=== PATIENT | female | born 1985 | race Caucasian/White ===

== ENCOUNTER 2020-05-20 08:09 | Outpatient (CLI) | payer OTHER ==
[2020-05-20 15:35] LABS: BASOPHILS % (AUTO) 0.9 %; EOSINOPHILS # (AUTO) 0.4 10^3/uL (0.0-0.7); EOSINOPHILS % (AUTO) 8.3 %; HGB - HEMOGLOBIN 13.6 g/dL (12.0-16.0); LYMPHOCYTES # (AUTO) 1.7 10^3/uL (1.5-3.5); LYMPHOCYTES % (AUTO) 37.7 %; MEAN CORPUSCULAR HEMOGLOBIN 28.3 pg (27.0-31.0); MEAN CORPUSCULAR HGB CONC 31.8 g/dL (32.0-36.0); MONOCYTES # (AUTO) 0.3 10^3/uL (0.0-1.0); MONOCYTES % (AUTO) 7.5 %; NEUTROPHILS # (AUTO) 2.1 10^3/uL (1.5-6.6); NEUTROPHILS % (AUTO) 45.4 %; PLT - PLATELET COUNT 214 10^3/uL (130-450); RED BLOOD COUNT 4.81 10^6/uL (4.20-5.40); RED CELL DISTRIBUTION WIDTH 12.5 % (12.0-15.0); WHITE BLOOD COUNT 4.6 x10^3/uL (4.8-10.8)
[2020-05-20 15:47] LABS: ALBUMIN 4.3 g/dL (3.2-5.5); ALBUMIN/GLOBULIN RATIO 1.5 (1.0-2.2); BILIRUBIN,TOTAL 0.9 mg/dL (0.2-1.0); CALCIUM 9.3 mg/dL (8.5-10.3); CREATININE 0.6 mg/dL (0.4-1.0); TOTAL PROTEIN 7.2 g/dL (6.7-8.2)
[2020-05-20 16:09] LABS: FREE T3 3.54 pg/mL (2.5-3.9); FREE T4 (FREE THYROXINE) 0.96 ng/dL (0.58-1.64)
[2020-05-20 16:12] LABS: FERRITIN 51.5 ng/mL (11.0-306.8)
[2020-05-20 16:32] LABS: FOLLICLE STIMULATING HORMONE 7.29 mIU/mL
[2020-05-20 16:33] LABS: LUTEINIZING HORMONE 20.79 mIU/mL
== END 2020-05-20 08:10 | disposition home or self-care (01) ==
LOC: LAB.S 08:09
PROVIDERS: ATTEND Acupuncturist
DX: L70.9 Acne, unspecified (principal); Z13.0 Encounter for screening for diseases of the blood and blood-forming organs and certain disorders involving the immune mechanism; N92.6 Irregular menstruation, unspecified; Z13.21 Encounter for screening for nutritional disorder
CPT/HCPCS: 36415; 80053; 81599; 82306; 82607; 82627; 82728; 83001; 83002; 84402; 84403; 84439; 84443; 84481; 85025

== ENCOUNTER 2020-08-21 07:54 | Outpatient (CLI) | payer OTHER ==
[2020-08-21 14:50] LABS: BASOPHILS % (AUTO) 0.7 %; EOSINOPHILS # (AUTO) 0.6 10^3/uL (0.0-0.7); EOSINOPHILS % (AUTO) 10.8 %; HGB - HEMOGLOBIN 14.2 g/dL (12.0-16.0); LYMPHOCYTES # (AUTO) 2.3 10^3/uL (1.5-3.5); LYMPHOCYTES % (AUTO) 42.6 %; MEAN CORPUSCULAR HGB CONC 32.4 g/dL (32.0-36.0); MEAN CORPUSCULAR VOLUME 89.4 fL (81.0-99.0); MEAN PLATELET VOLUME 11.2 fL (7.9-10.8); MONOCYTES # (AUTO) 0.3 10^3/uL (0.0-1.0); MONOCYTES % (AUTO) 5.7 %; NEUTROPHILS # (AUTO) 2.2 10^3/uL (1.5-6.6); PLT - PLATELET COUNT 257 10^3/uL (130-450); RED CELL DISTRIBUTION WIDTH 12.3 % (12.0-15.0); WHITE BLOOD COUNT 5.5 x10^3/uL (4.8-10.8)
[2020-08-21 15:44] LABS: HEMOGLOBIN A1c% 5.2 % (4.27-6.07)
[2020-08-21 15:50] LABS: % IRON SATURATION 29 % (20-50); IRON 84 ug/dL (28-170); TOTAL IRON BINDING CAPACITY 288 ug/dL (250-450); TRANSFERRIN 206 mg/dL (192-382)
== END 2020-08-21 07:55 | disposition home or self-care (01) ==
LOC: LAB.S 07:54
PROVIDERS: ATTEND Acupuncturist
DX: R79.9 Abnormal finding of blood chemistry, unspecified (principal); E34.9 Endocrine disorder, unspecified; Z13.1 Encounter for screening for diabetes mellitus; Z13.0 Encounter for screening for diseases of the blood and blood-forming organs and certain disorders involving the immune mechanism
CPT/HCPCS: 36415; 82306; 82627; 83036; 83540; 84466; 85025

== ENCOUNTER 2021-02-08 09:15 | Outpatient (CLI) | payer OTHER ==
[2021-02-10 12:26] LABS: DHEA SULFATE 441 mcg/dL (23-266)
[2021-02-15 18:01] LABS: ENDOMYSIAL ANTIBODY SCR IGA NEGATIVE (NEGATIVE); GLIADIN (DEAMIDATED) AB IGA 4 U (<20); GLIADIN (DEAMIDATED) AB IGG <1 U (<20); IMMUNOGLOBULIN A 205 mg/dL (47-310); TISSUE TRANSGLUTAMINASE IGA <1 U/mL; TISSUE TRANSGLUTAMINASE IGG 1 U/mL
== END 2021-02-08 09:16 | disposition home or self-care (01) ==
LOC: LAB.S 09:15
PROVIDERS: ATTEND Acupuncturist
DX: E34.9 Endocrine disorder, unspecified (principal); R10.84 Generalized abdominal pain; Z13.29 Encounter for screening for other suspected endocrine disorder
CPT/HCPCS: 36415; 81599; 82627; 82784; 83516; 84402; 84403; 84443; 86255

== ENCOUNTER 2021-03-12 12:21 | Emergency (ER) | payer OTHER ==
[2021-03-12 12:52] LABS: BASOPHILS % (AUTO) 0.7 %; EOSINOPHILS # (AUTO) 0.2 10^3/uL (0.0-0.7); EOSINOPHILS % (AUTO) 4.4 %; HCT - HEMATOCRIT 42.1 % (37.0-47.0); HGB - HEMOGLOBIN 14.1 g/dL (12.0-16.0); LYMPHOCYTES # (AUTO) 1.9 10^3/uL (1.5-3.5); LYMPHOCYTES % (AUTO) 34.7 %; MEAN CORPUSCULAR HEMOGLOBIN 29.6 pg (27.0-31.0); MEAN CORPUSCULAR HGB CONC 33.5 g/dL (32.0-36.0); MEAN CORPUSCULAR VOLUME 88.4 fL (81.0-99.0); MEAN PLATELET VOLUME 10.3 fL (7.9-10.8); MONOCYTES # (AUTO) 0.4 10^3/uL (0.0-1.0); MONOCYTES % (AUTO) 6.4 %; NEUTROPHILS # (AUTO) 2.9 10^3/uL (1.5-6.6); NEUTROPHILS % (AUTO) 53.6 %; PLT - PLATELET COUNT 233 10^3/uL (130-450); RED BLOOD COUNT 4.76 10^6/uL (4.20-5.40); RED CELL DISTRIBUTION WIDTH 12.1 % (12.0-15.0); WHITE BLOOD COUNT 5.4 x10^3/uL (4.8-10.8)
[2021-03-12 13:09] LABS: BILIRUBIN,URINE NEGATIVE (NEGATIVE); GLUCOSE, URINE (UA) NEGATIVE (NEGATIVE); KETONES,URINE (UA) NEGATIVE (NEGATIVE); LEUKOCYTE ESTERASE, URINE NEGATIVE (NEGATIVE); NITRITE,URINE NEGATIVE (NEGATIVE); OCCULT BLOOD,URINE LARGE (NEGATIVE); PROTEIN,URINE NEGATIVE (NEGATIVE); UROBILINOGEN,URINE 0.2 (NORMAL) E.U./dL (NORMAL)
[2021-03-12 13:10] LABS: ALBUMIN 4.3 g/dL (3.2-5.5); ALBUMIN/GLOBULIN RATIO 1.4 (1.0-2.2); BILIRUBIN,TOTAL 0.5 mg/dL (0.2-1.0); CREATININE 0.6 mg/dL (0.4-1.0); POTASSIUM 3.5 mmol/L (3.5-5.0); TOTAL PROTEIN 7.4 g/dL (6.7-8.2)
[2021-03-12 13:12] LABS: CLARITY,URINE CLEAR (CLEAR)
--- NOTE | 2021-03-12 13:14 | ED Physician Documentation ---
History of Present Illness - Stated complaint Stated Complaint: FEMALE / 9 1/2 WK OB - Chief complaint Chief Complaint: Abd Pain - History obtained from History obtained from: Patient - History of Present Illness Timing: Yesterday Pain level max: 2 Pain level now: 1 - Additonal information Additional information: Patient is a 35-year-old female, 3 para 2 who presents to the emergency department stating that she has had vaginal spotting and light bleeding yesterday and today. She believes she is about 9 weeks . Has not had an ultrasound yet this . Also having pelvic cramping. Nothing makes it better or worse. No fevers. No chills. No cough or congestion. Review of Systems Constitutional: denies: Fever, Chills GI: denies: Vomiting, Diarrhea Skin: denies: Rash Musculoskeletal: denies: Neck pain, Back pain Neurologic: denies: Headache PD PAST MEDICAL HISTORY - Past Medical History Past Medical History: No - Present Medications Home Medications: Ambulatory Orders Medication Instructions Recorded Confirmed No Known Home Medications 03/12/21 03/12/21 - Allergies Allergies/Adverse Reactions: Allergies Allergy/AdvReac Type Severity Reaction Status Date / Time Sulfa (Sulfonamide Allergy Rash Verified 03/12/21 12:30 Antibiotics) - Social History Does the pt smoke?: No Smoking Status: Never smoker PD ED PE NORMAL - Vitals Vital signs reviewed: Yes - General General: Alert and oriented X 3, No acute distress, Well developed/nourished - HEENT HEENT: Moist mucous membranes - Neck Neck: Supple, no meningeal sign - Cardiac Cardiac: RRR, Strong equal pulses - Respiratory Respiratory: No respiratory distress, Clear bilaterally - Abdomen Abdomen: Soft, Non tender, Non distended - Derm Derm: Warm and dry - Extremities Extremities: No edema, No calf tenderness / cord - Neuro Neuro: Alert and oriented X 3 - Psych Psych: Normal mood, Normal affect Results - Vitals Vitals: Vital Signs - 24 hr 03/12/21 12:24 Temperature 36.8 C Heart Rate 76 Respiratory 16 Rate Blood Pressure 120/68 O2 Saturation 98 Oxygen O2 Source Room air - Labs Labs: Laboratory Tests 03/12/21 03/12/21 03/12/21 12:43 12:45 12:45 WBC 5.4 RBC 4.76 Hgb 14.1 Hct 42.1 MCV 88.4 MCH 29.6 MCHC 33.5 RDW 12.1 Plt Count 233 MPV 10.3 Neut # (Auto) 2.9 Lymph # (Auto) 1.9 [place] # (Auto) 0.4 Eos # (Auto) 0.2 Baso # (Auto) 0.0 Absolute Nucleated RBC 0.00 Nucleated RBC % 0.0 Sodium 138 Potassium 3.5 Chloride 103 Carbon Dioxide 25 Anion Gap 10.0 BUN 9 Creatinine 0.6 Estimated GFR (MDRD) 115 Glucose 103 H Calcium 9.0 Total Bilirubin 0.5 AST 17 ALT 16 Alkaline Phosphatase 65 Total Protein 7.4 Albumin 4.3 Globulin 3.1 Albumin/Globulin Ratio 1.4 Lipase 26 HCG, Quant Urine Color YELLOW Urine Clarity CLEAR Urine pH 7.0 Ur Specific [place] 1.010 Urine Protein NEGATIVE Urine Glucose (UA) NEGATIVE Urine Ketones NEGATIVE Urine Occult Blood LARGE H Urine Nitrite NEGATIVE Urine Bilirubin NEGATIVE Urine Urobilinogen 0.2 (NORMAL) Ur Leukocyte Esterase NEGATIVE Urine RBC 6-10 H Urine WBC 0-3 Ur Squamous Epith Cells RARE Squamous Urine Bacteria Rare Ur Microscopic Review INDICATED Urine Culture Comments NOT INDICATED Blood Type 03/12/21 03/12/21 12:45 12:45 WBC RBC Hgb Hct MCV MCH MCHC RDW Plt Count MPV Neut # (Auto) Lymph # (Auto) [place] # (Auto) Eos # (Auto) Baso # (Auto) Absolute Nucleated RBC Nucleated RBC % Sodium Potassium Chloride Carbon Dioxide Anion Gap BUN Creatinine Estimated GFR (MDRD) Glucose Calcium Total Bilirubin AST ALT Alkaline Phosphatase Total Protein Albumin Globulin Albumin/Globulin Ratio Lipase HCG, Quant 29059.00 Urine Color Urine Clarity Urine pH Ur Specific [place] Urine Protein Urine Glucose (UA) Urine Ketones Urine Occult Blood Urine Nitrite Urine Bilirubin Urine Urobilinogen Ur Leukocyte Esterase Urine RBC Urine WBC Ur Squamous Epith Cells Urine Bacteria Ur Microscopic Review Urine Culture Comments Blood Type O POSITIVE - Rads (name of study) OB US Radiology: Prelim report reviewed, EMP read contemporaneously, See rad report PD MEDICAL DECISION MAKING - ED course Complexity details: reviewed results, re-evaluated patient, considered differential, d/w patient ED course: Patient with a yolk sac but no pole yet identified. EGA is 6 weeks 3 days. hCG is 12,600. She is not actively bleeding here. Urinalysis appears contaminated. We will have her return in 2 to 3 days for a repeat hCG. If this is rising, she should follow-up with her doctor for repeat ultrasound. Patient counseled regarding signs and symptoms for which I believe and urgent re- evaluation would be necessary. Patient with good understanding of and agreement to plan and is comfortable going home at this time This document was made in part using voice recognition software. While efforts are made to proofread this document, sound alike and grammatical errors may occur. Departure - Departure Disposition: 01 Home, Self Care Clinical Impression: Vaginal bleeding affecting early Condition: Good Instructions: ED Miscarriage Poss Follow-Up: your,doctor in [place] [Other] Comments: Please return to the emergency department in 2 to 3 days for a repeat hCG. Your ultrasound today shows a yolk sac, but we do not yet see the itself. Your estimated gestational age by yolk sac measurement is 6 weeks and 3 days. There is a small subchorionic bleed, this may represent the bleeding that you are having. You do have a right corpus luteum cyst. The pole is not yet identified. Your hCG level is 12,600. On your repeat visit, we will determine if the hCG level is going up or down, this will help us with the next age in your management. If it is going up, you will likely need a repeat ultrasound in 1 to 2 weeks when you are in [place] Your blood type is O+
[2021-03-12 13:23] LABS: BACTERIA,URINE Rare /HPF (None Seen); SQUAMOUS EPITHELIAL CELL,UR RARE Squamous (<= Few); WBC,URINE 0-3 /HPF (0-5)
--- NOTE | 2021-03-12 15:06 | Ultrasound Report ---
PROCEDURE: OB First Trimester w/TV INDICATIONS: 9 weeks preg, vag bleed OUTSIDE/PRIOR DATING DATA: Last menstrual period (LMP): 01/03/2021. LMP-based estimated date of delivery (AMISHA): 10/10/2021. TECHNIQUE: Real-time scanning was performed of the fetus and maternal pelvic organs, with image documentation. Endovaginal scanning was also performed to better visualize the fetus and maternal ovaries. COMPARISON: None. FINDINGS: Gestational sac and yolk sac are seen within the uterus with a mean gestational sac diameter of 1.6 c m, corresponding to a estimated gestational age of 6 weeks 3 days. No definite pole visualized. A small perigestational sac hemorrhage is seen measuring 0.7 x 0.6 x 1.8 cm. Measurement variability in dating: +/- 4 weeks by LMP, +/- 7 days by mean sac diameter (use before 6 weeks gestation if crown-rump length not able to be measured), +/- 5 days by crown-rump length (6-12 weeks gestation). Maternal organs: The ovaries are normal in size. A right ovarian cyst is seen measuring up to 1.8 cm in maximum dimension. IMPRESSION: 1. Intrauterine gestational sac and yolk sac identified without definite visualization of a po le. Mean gestational sac diameter compatible with a 6 week 3 day gestation. Findings most likely repr esent normal early , but follow-up beta-hCG and repeat ultrasound recommended. 2. Small gestational sac hemorrhage measuring 0.7 x 0.6 x 1.8 cm. Preliminary findings were conveyed to Dr. Tijerina by the recovery specialist on 03/12/2021 at 2:45 PM. Reviewed by: Jamari Glasgow MD on 03/12/2021 3:05 PM PDT Approved by: Jamari Glasgow MD on 03/12/2021 3:05 PM PDT Station ID: [id number]
[2021-03-12 15:07] VITALS: BP 111/70
== END 2021-03-12 15:09 | disposition home or self-care (01) ==
LOC: ED 12:21
DX: O20.9 Hemorrhage in early pregnancy, unspecified (principal); Z3A.01 Less than 8 weeks gestation of pregnancy
CPT/HCPCS: 36415; 80053; 81001; 81003; 83690; 84702; 85025; 86900; 86901; 87086; 99284

== ENCOUNTER 2021-03-14 11:34 | Emergency (ER) | payer OTHER ==
[2021-03-14 12:23] VITALS: BP 106/59
--- NOTE | 2021-03-14 12:55 | ED Physician Documentation ---
History of Present Illness - Stated complaint Stated Complaint: LAB RECHECK - Chief complaint Chief Complaint: General - History obtained from History obtained from: Patient - Additonal information Additional information: She was seen by my partner 2 days ago for symptoms concerning for threatened . Despite thinking she was about 9 weeks along, Her ultrasound on that date showed 6 weeks gestation without reassuring signs of wellbeing. Beta hCG at that time was 12,676. She was advised to come back for recheck today. Review of Systems Constitutional: denies: Fever, Chills GI: denies: Abdominal Pain, Nausea, Vomiting : denies: Dysuria PD PAST MEDICAL HISTORY - Past Medical History Past Medical History: No - Past Surgical History Past Surgical History: No - Present Medications Home Medications: Ambulatory Orders Medication Instructions Recorded Confirmed No Known Home Medications 03/12/21 03/14/21 - Allergies Allergies/Adverse Reactions: Allergies Allergy/AdvReac Type Severity Reaction Status Date / Time Sulfa (Sulfonamide Allergy Rash Verified 03/14/21 12:23 Antibiotics) - Social History Does the pt smoke?: No Smoking Status: Never smoker Does the pt drink ETOH?: No Does the pt have substance abuse?: No PD ED PE NORMAL - Vitals Vital signs reviewed: Yes - General General: Alert and oriented X 3, No acute distress - Neuro Neuro: Alert and oriented X 3, Normal speech - Psych Psych: Normal mood, Normal affect Results - Vitals Vitals: Vital Signs - 24 hr 03/14/21 12:22 Temperature 36.8 C Heart Rate 89 Respiratory 14 Rate Blood Pressure 106/59 L O2 Saturation 100 Oxygen O2 Source Room air - Labs Labs: Laboratory Tests 03/14/21 11:50 HCG, Quant 08757.00 PD MEDICAL DECISION MAKING - ED course ED course: hCG is decreasing, this is suggestive of nonviable and discussed with her. She will need repeat ultrasound in about a week to confirm. Departure - Departure Disposition: 01 Home, Self Care Clinical Impression: Threatened Condition: Good Record reviewed to determine appropriate education?: Yes Instructions: ED Miscarriage Poss Comments: Beta[place] [address] to [address] which unfortunately is not reassuring for this , should have an ultrasound about a week from the initial 1, that would be this Monday. Return sooner if worsening. Discharge Date/Time: 03/14/21 12:59
== END 2021-03-14 12:59 | disposition home or self-care (01) ==
LOC: ED 11:34
DX: O20.0 Threatened abortion (principal); Z3A.00 Weeks of gestation of pregnancy not specified
CPT/HCPCS: 36415; 84702; 99283

== ENCOUNTER 2021-03-19 08:06 | Emergency (ER) | payer OTHER ==
[2021-03-19 08:14] VITALS: BP 122/79
--- NOTE | 2021-03-19 08:16 | ED Physician Documentation ---
PD HPI FEMALE - Stated complaint Stated Complaint: SPOTTING - Chief complaint Chief Complaint: Abd Pain - History obtained from History obtained from: Patient - History of Present Illness Timing - onset: How many weeks ago (1) Timing - duration: Weeks Timing - details: Abrupt onset, Still present (Still has vaginal bleeding and cramping waxing and waning through the day. She states she is using 4-6 pads per day but not saturating.) Associated symptoms: Pelvic pain (cramping intermittently), Vaginal bleeding. No: Fever, Vaginal pain, Vaginal discharge Contributing factors: (early with U/S showing 6 week size a week ago (should be 9 weeks by dates) and not visible FHR, but may have been dates related. Was directly to come back for repeat U/S at 1 week. 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 denies: Dysuria, Frequenc y, Discharge PD PAST MEDICAL HISTORY - Past Medical History Cardiovascular: None Respiratory: None Neuro: None Endocrine/Autoimmune: None - Past Surgical History Past Surgical History: No - Present Medications Home Medications: Ambulatory Orders Medication Instructions Recorded Confirmed Ibuprofen [Motrin] 600 mg PO TID PRN #20 tab 03/19/21 Methylergonovine Maleate 0.2 mg PO TID #12 tablet 03/19/21 [Methergine] - Allergies Allergies/Adverse Reactions: Allergies Allergy/AdvReac Type Severity Reaction Status Date / Time Sulfa (Sulfonamide Allergy Rash Verified 03/19/21 08:14 Antibiotics) - Social History Does the pt smoke?: No Smoking Status: Never smoker Does the pt drink ETOH?: No Does the pt have substance abuse?: No PD ED PE NORMAL - Vitals Vital signs reviewed: Yes - General General: Alert and oriented X 3, Well developed/nourished - Cardiac Cardiac: RRR, No murmur - Respiratory Respiratory: Clear bilaterally - Abdomen Abdomen: Soft, Non distended, Other (mild suprapubic tender without guarding. ) - Female Female : Deferred - Rectal Rectal: Deferred - Back Back: No CVA TTP - Derm Derm: Normal color Results - Vitals Vitals: Vital Signs - 24 hr 03/19/21 08:11 Temperature 36.2 C L Heart Rate 87 Respiratory 16 Rate Blood Pressure 122/79 O2 Saturation 100 Oxygen O2 Source Room air - Labs Labs: Laboratory Tests 03/19/21 03/19/21 03/19/21 08:31 08:31 08:31 WBC 4.3 L RBC 4.76 Hgb 14.1 Hct 42.5 MCV 89.3 MCH 29.6 MCHC 33.2 RDW 12.0 Plt Count 234 MPV 10.5 Neut # (Auto) 2.2 Lymph # (Auto) 1.6 [place] # (Auto) 0.3 Eos # (Auto) 0.2 Baso # (Auto) 0.0 Absolute Nucleated RBC 0.00 Nucleated RBC % 0.0 Sodium 137 Potassium 3.8 Chloride 101 Carbon Dioxide 26 Anion Gap 10.0 BUN 13 Creatinine 0.6 Estimated GFR (MDRD) 115 Glucose 74 Calcium 9.1 HCG, Quant 1019.93 - Rads (name of study) OB U/S Radiology: Prelim report reviewed (No IUP seen, which had been seen previously, c/w miscarriage. No acute process. ), See rad report PD MEDICAL DECISION MAKING - ED course Complexity details: reviewed old records, reviewed results, re-evaluated patient (The ultrasound does not show an intrauterine , which had been visible on the previous ultrasound a week ago. At this point would look to be a completed miscarriage in her quant would be consistent with that now down to 1000 from 10,000.), considered differential, d/w patient, d/w tax credit leasing consultant (s/w Dr. Cordova, integration lead BULB BRANDER - Couple of weeks of bleeding would not be unusual post miscarriage. We could use Methergine to decrease the bleeding though it would increase cramping short-term. Combined with NSAIDs.) ED course: The patient states she is leaving [facility] to another area next week so will need to follow-up there. She has been in touch with a nurse lambskin trimmer in the new area so has a follow-up care available. At this point she is on decided on the Methergine so I wrote an oral prescription that she can take if wanted. Departure - Departure Disposition: 01 Home, Self Care Clinical Impression: Complete miscarriage Condition: Stable Record reviewed to determine appropriate education?: Yes Instructions: ED Miscarriage Completed Prescriptions: Methylergonovine Maleate [Methergine] 0.2 mg PO TID #12 tablet Ibuprofen [Motrin] 600 mg PO TID PRN #20 tab PRN Reason: Pain Comments: Your quantitative hCG is down to 1000. This is an appropriate decline for the miscarriage. I talked with our MOVING PICTURE PRODUCER on-call and they suggested having your provider retest your hCG level in about a month to ensure it goes down to 0. This verifies that there is no retained tissue or such. Your ultrasound did not show any obvious retained tissue. Some of those portions can be too small to really identify on ultrasound. The main seen a week ago is now gone. It would be common to have some bleeding and cramping for a couple of weeks after the miscarriage. You can decrease the bleeding with Methergine, medication that shrinks the blood flow to the uterus. However it can cause cramping. You can use ibuprofen 3 times a day for the next several days to week to help with cramping. Add Tylenol if needed for pain. Follow-up with your provider when you are moved to [facility] next week as planned. Discharge Date/Time: 03/19/21 09:37
[2021-03-19 08:37] LABS: BASOPHILS % (AUTO) 0.9 %; EOSINOPHILS # (AUTO) 0.2 10^3/uL (0.0-0.7); EOSINOPHILS % (AUTO) 5.3 %; HCT - HEMATOCRIT 42.5 % (37.0-47.0); HGB - HEMOGLOBIN 14.1 g/dL (12.0-16.0); LYMPHOCYTES # (AUTO) 1.6 10^3/uL (1.5-3.5); LYMPHOCYTES % (AUTO) 37.3 %; MEAN CORPUSCULAR HEMOGLOBIN 29.6 pg (27.0-31.0); MEAN CORPUSCULAR HGB CONC 33.2 g/dL (32.0-36.0); MEAN CORPUSCULAR VOLUME 89.3 fL (81.0-99.0); MEAN PLATELET VOLUME 10.5 fL (7.9-10.8); MONOCYTES # (AUTO) 0.3 10^3/uL (0.0-1.0); MONOCYTES % (AUTO) 6.7 %; NEUTROPHILS # (AUTO) 2.2 10^3/uL (1.5-6.6); NEUTROPHILS % (AUTO) 49.6 %; PLT - PLATELET COUNT 234 10^3/uL (130-450); RED BLOOD COUNT 4.76 10^6/uL (4.20-5.40); WHITE BLOOD COUNT 4.3 x10^3/uL (4.8-10.8)
[2021-03-19 08:50] LABS: CALCIUM 9.1 mg/dL (8.5-10.3); CREATININE 0.6 mg/dL (0.4-1.0); POTASSIUM 3.8 mmol/L (3.5-5.0)
--- NOTE | 2021-03-19 10:04 | Ultrasound Report ---
PROCEDURE: OB First Trimester INDICATIONS: U/S 03/12 showing possible incomplete miscarriage OUTSIDE/PRIOR DATING DATA: Last menstrual period (LMP): 01/03/2021. LMP-based estimated date of delivery (AMISHA): 10/10/2021. TECHNIQUE: Real-time scanning was performed of the fetus and maternal pelvic organs, with image documentation. Transvaginal scanning was performed for better visualization of the pelvic structures. Images are pre sent on the OB first trimester exam (accession number [id number]). COMPARISON: OB ultrasound 03/12/2021 FINDINGS: The previously seen gestational sac is no longer visualized. No intrauterine is seen. A sma ll endometrial cyst is seen in the cervix measuring 0.4 cm. Maternal organs: Right ovarian corpus luteum cyst measures 1.4 x 0.9 x 1.2 cm. IMPRESSION: The previously seen gestational sac is no longer present, consistent with interval miscarriage. Findings were conveyed to Dr. Rock by the fishing tool technician oil well on 03/19/2021 at 9:15 AM. Reviewed by: Jamari Glasgow MD on 03/19/2021 10:03 AM PDT Approved by: Jamari Glasgow MD on 03/19/2021 10:03 AM PDT Station ID: [id number]
--- NOTE | 2021-03-19 10:04 | Ultrasound Report ---
PROCEDURE: OB Transvaginal INDICATIONS: U/S 03/12 showing possible incomplete miscarriage OUTSIDE/PRIOR DATING DATA: Last menstrual period (LMP): 01/03/2021. LMP-based estimated date of delivery (AMISHA): 10/10/2021. TECHNIQUE: Real-time scanning was performed of the fetus and maternal pelvic organs, with image documentation. Transvaginal scanning was performed for better visualization of the pelvic structures. Images are pre sent on the OB first trimester exam (accession number [id number]). COMPARISON: OB ultrasound 03/12/2021 FINDINGS: The previously seen gestational sac is no longer visualized. No intrauterine is seen. A sma ll endometrial cyst is seen in the cervix measuring 0.4 cm. Maternal organs: Right ovarian corpus luteum cyst measures 1.4 x 0.9 x 1.2 cm. IMPRESSION: The previously seen gestational sac is no longer present, consistent with interval miscarriage. Findings were conveyed to Dr. Rock by the histology tech on 03/19/2021 at 9:15 AM. Reviewed by: Jamari Glasgow MD on 03/19/2021 10:03 AM PDT Approved by: Jamari Glasgow MD on 03/19/2021 10:03 AM PDT Station ID: [id number]
== END 2021-03-19 09:37 | disposition home or self-care (01) ==
LOC: ED 08:06
DX: O03.9 Complete or unspecified spontaneous abortion without complication (principal)
CPT/HCPCS: 36415; 80048; 84702; 85025; 99284